=== PATIENT | male | born 1965 | race Two or more races ===

== ENCOUNTER 2017-12-21 09:21 | Outpatient (CLI) | payer OTHER | END 2017-12-21 12:21 | disposition home or self-care (01) | LOC: ECT 09:21 | DX: F32.3 Major depressive disorder, single episode, severe with psychotic features (principal); I10 Essential (primary) hypertension; M17.11 Unilateral primary osteoarthritis, right knee; E78.5 Hyperlipidemia, unspecified; R73.03 Prediabetes ==